=== PATIENT | male | born 2000 | race Caucasian/White ===

== ENCOUNTER 2020-09-24 16:22 | Emergency (ER) | payer OTHER ==
[~2020-09-24] VITALS: Ht 182.9 cm; Wt 63.5 kg
[~2020-09-24 16:22] MED LIST: ADVIL200 MG PO; CLARITIN5 MG/5 ML PO; ZANTAC150 MG PO; ZYRTEC10 MG PO
== END 2020-09-24 18:40 | disposition home or self-care (01) ==
LOC: ED 16:22
DX: S06.0X1A Concussion with loss of consciousness of 30 minutes or less, initial encounter (principal); V48.5XXA Car driver injured in noncollision transport accident in traffic accident, initial encounter
CPT/HCPCS: 70450; 99284-25

== ENCOUNTER 2021-04-02 20:12 | Emergency (ER) | payer OTHER ==
[~2021-04-02] VITALS: Ht 182.9 cm; Wt 61.2 kg
== END 2021-04-02 21:53 | disposition home or self-care (01) ==
LOC: ED 20:12
DX: U07.1 COVID-19 (principal)
CPT/HCPCS: 71045; 87081; 99284-25; C9803; U0003

== ENCOUNTER 2021-07-07 15:25 | Emergency (ER) | payer OTHER ==
[~2021-07-07] VITALS: Ht 182.9 cm; Wt 61.2 kg
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
== END 2021-07-07 19:27 | disposition home or self-care (01) ==
LOC: ED 15:25
DX: J06.9 Acute upper respiratory infection, unspecified (principal); Z20.822 Contact with and (suspected) exposure to COVID-19
CPT/HCPCS: 99284; U0003

== ENCOUNTER 2022-05-08 00:19 | Emergency (ER) | payer OTHER ==
[~2022-05-08] VITALS: Ht 182.9 cm; Wt 61.2 kg
== END 2022-05-08 01:51 | disposition home or self-care (01) ==
LOC: ED 00:19
DX: S60.221A Contusion of right hand, initial encounter (principal); W22.8XXA Striking against or struck by other objects, initial encounter
CPT/HCPCS: 73110; 99283-25

== ENCOUNTER 2023-08-25 23:40 | Emergency (ER) | payer OTHER ==
[~2023-08-25] VITALS: Ht 182.9 cm; Wt 61.2 kg
[2023-08-26 00:01] LABS: BASOPHILS 0.7 % (0-2); EOSINOPHILS 2.9 % (0-6); HEMATOCRIT 42.6 % (35.0-50.0); HEMOGLOBIN 13.9 g/dL (12.0-18.0); LYMPHOCYTES 32.9 % (24-44); MCH 28.8 (27-36); MCHC 32.6 g/dl (30-36); MCV 88.5 fl (81-99); MONOCYTES 7.5 % (0-12); PLATELET COUNT 261 K/uL (140-440); RBC 4.81 M/ul (4.3-5.7); RDW 12.9 (10.5-15.0)
[2023-08-26 00:24] LABS: ALBUMIN 4.1 g/dL (3.4-5.0); ALBUMIN/GLOBULIN RATIO 1.11 (1.1-2.4); ALKALINE PHOSPHATASE 95 U/L (46-116); ALT (SGPT) 30 U/L (14-59); ANION GAP 12.6 (7-21); AST (SGOT) 20 U/L (15-37); BILIRUBIN, TOTAL 0.2 ng/dL (0.2-1.0); BUN/CREATININE RATIO 14.73 (6.0-28.6); CALCIUM 9.2 mg/dL (8.5-10.1); CARBON DIOXIDE 29 mmol/L (21-32); CHLORIDE 103 mmol/L (98-107); CREATININE, SERUM 0.95 mg/dL (0.70-1.30); GLOMERULAR FILTRATION RATE,EST 115 mL/min (>60); POTASSIUM 3.6 mmol/L (3.5-5.1); PROTEIN, TOTAL 7.8 g/dL (6.4-8.2); UREA NITROGEN 14 mg/dL (7-18)
[2023-08-26] MEDS ORDERED: CYCLOBENZAPRINE10 MG PO (00:42)
[2023-08-26] MEDS ORDERED: ONDANSETRON ODT8 MG PO (00:42)
[2023-08-26 01:09] VITALS: BP 100/67
--- NOTE | 2023-08-26 06:14 | EKG ---
[facility] [address] [place] [address] Signed Normal sinus rhythm Incomplete right bundle branch block Borderline ECG No previous ECGs available Confirmed by MARY IRAHETA MD ([id number] on 08/26/2023 6:13:49 AM Electronically Signed By: MARY IRAHETA 08/26/23612 PATIENT NAME: LINDA DIEGO Electrocardiogram DATE OF : [birth year] PHYSICIAN: MARY IRAHETA REPORT #: [id number] REPORT IS CONFIDENTIAL AND NOT TO BE RELEASED WITHOUT AUTHORIZATION
== END 2023-08-26 01:05 | disposition home or self-care (01) ==
LOC: ED 23:40
PROVIDERS: Family Medicine
DX: R07.89 Other chest pain (principal); R11.10 Vomiting, unspecified
CPT/HCPCS: 36415; 71045; 80053; 83735; 84484; 85025; 93005; 93010; 96361; 96374; 99285-25; A9270; J2405; J7121